=== PATIENT | male | born 1940 | race African-American/Black ===

== ENCOUNTER 2024-06-05 13:56 | Emergency (ER) | payer MEDICARE, OTHER ==
[~2024-06-05] VITALS: Ht 177.8 cm; Wt 66.0 kg
[2024-06-05 14:07] VITALS: O2SAT 97
[2024-06-05] MEDS: SODIUM CHLORIDE 0.9% 1,000 ML IV ONE (15:04)
[2024-06-05 15:23] LABS: BASOPHILS % 0.5 % (0.0-2.0); EOSINOPHILS % 2.3 % (0.0-5.0); HEMATOCRIT. 36.9 % (42.0-52.0); HEMOGLOBIN. 11.9 g/dL (14.0-18.0); LYMPHOCYTES % 25.2 % (20.0-50.0); MEAN CORPUSCULAR HEMOGLOBIN 29.3 pg (28.0-32.0); MEAN CORPUSCULAR HGB CONC 32.3 g/dL (31.0-37.0); MEAN CORPUSCULAR VOLUME 90.8 fL (80.0-94.0); MEAN PLATELET VOLUME 7.4 fl (7.4-10.4); MONOCYTES % 5.7 % (2.0-8.0); NEUTROPHILS % 66.3 % (40.0-76.0); PLATELET 260 x1000/uL (130-400); RED BLOOD CELL COUNT 4.07 mill/uL (4.7-6.1); RED CELL DISTRIBUTION WIDTH 15.7 % (11.6-14.6); WHITE BLOOD COUNT 6.4 x1000/uL (4.5-11.0)
[2024-06-05 15:34] LABS: CHLORIDE 112 mEq/L (98-107); POTASSIUM 4.1 mEq/L (3.5-5.1); SODIUM 142 mEq/L (136-145)
[2024-06-05 15:35] LABS: CALCIUM 9.3 mg/dL (8.7-10.4); CARBON DIOXIDE 25 mEq/L (21-32)
[2024-06-05 15:40] LABS: CREATININE 1.1 mg/dL (0.6-1.3); GLUCOSE 108 mg/dL (70-105); PROTHROMBIN TIME 10.8 sec (9.6-11.0); UREA NITROGEN BLOOD 16 mg/dL (9-23)
[2024-06-05 15:42] LABS: ALANINE AMINOTRANSFERASE < 7 IU/L (10-49); ALBUMIN 3.6 g/dL (3.2-4.8); ASPARTATE AMINOTRANSFERASE 14 IU/L (<34); BILIRUBIN DIRECT 0.1 mg/dL (<=3.0); BILIRUBIN TOTAL 0.4 mg/dL (0.1-1.0); PROTEIN TOTAL 7.1 g/dL (6.0-8.3)
[2024-06-05 15:44] LABS: ETHANOL BLOOD < 10 mg/dL (<10); TROPONIN I HIGH SENSITIVITY 69 ng/L (3.0-53)
[2024-06-05] MEDS ORDERED: CEFTRIAXONE 1GM/50ML 50 ML IV ONE (16:15)
[2024-06-05] MEDS ORDERED: AZITHROMYCIN 500MG/250ML 250 ML IV SCH (16:15)
[2024-06-05 18:40] VITALS: BP 154/76; PULSE 71; RESP 12; TEMP 36.94740; O2SAT 100
[2024-06-05] MEDS ORDERED: IPRATROPIUM/ALBUTEROL 0.5-3(2.5)MG/3ML NEB NEB PRN (18:45)
[2024-06-05] MEDS ORDERED: ONDANSETRON HCL 4MG/2ML INJ IV PRN (18:45)
[2024-06-05] MEDS ORDERED: CLONIDINE 0.1MG TABLET PO PRN (18:45)
[2024-06-05] MEDS ORDERED: ACETAMINOPHEN 325MG TABLET PO PRN ×2 (18:45)
[2024-06-05] MEDS ORDERED: NITROGLYCERIN 0.4MG TABLET SL SL PRN (18:45)
[2024-06-05] MEDS ORDERED: MAGNESIUM/ALUMINUM HYDROXIDE/SIMETHICONE 30ML UDC PO PRN (18:45)
[2024-06-05] MEDS ORDERED: DOCUSATE SODIUM 100MG CAPSULE PO PRN (18:45)
[2024-06-05] MEDS ORDERED: GUAIFENESIN 200MG/10ML SUGAR FREE UDC PO PRN (18:45)
[2024-06-05] MEDS ORDERED: KETOROLAC 15MG/ML VIAL IV PRN (19:00)
[2024-06-05 20:00] LABS: IRON 47 ug/dL (65-175)
[2024-06-05] MEDS ORDERED: ZOLPIDEM TARTRATE 5MG TABLET PO PRN (20:00)
[2024-06-05 20:01] LABS: LDL CHOLESTEROL 107 mg/dL (5-100); TRIGLYCERIDE 96 mg/dL (0-150)
[2024-06-05 20:03] LABS: CHOLESTEROL 177 mg/dL (<200); HDL CHOLESTEROL 57 mg/dL (>55); TOTAL IRON BINDING CAPACITY 252 ug/dl (250-425)
[2024-06-05 20:06] LABS: FOLIC ACID (FOLATE) SERUM 19.01 ng/mL (>5.38); VITAMIN B12 SERUM 640 pg/mL (211-911)
[2024-06-05 20:07] LABS: T4 FREE 1.05 ng/dL (0.89-1.76); THYROID STIMULATING HORMONE 0.87 uIU/mL (0.55-4.78)
[2024-06-05] MEDS ORDERED: ASCORBIC ACID 500 MG TABLET PO SCH (21:00)
[2024-06-05] MEDS ORDERED: METOPROLOL TARTRATE 25MG TABLET PO SCH (21:00)
[2024-06-06] MEDS ORDERED: ZINC SULFATE 220 MG ( 50 ) CAPSULE PO SCH (09:00)
[2024-06-06] MEDS ORDERED: ASPIRIN 81MG EC TABLET PO SCH (09:00)
[2024-06-06] MEDS ORDERED: ENOXAPARIN 40MG/0.4ML SYR SUBCUT SCH (09:00)
== END 2024-06-05 19:31 | disposition short-term general hospital (02) ==
LOC: ER 13:56 → CANBEDREQ 17:32 → ER 19:31
DX: R62.7 Adult failure to thrive (principal); J18.9 Pneumonia, unspecified organism; I21.4 Non-ST elevation (NSTEMI) myocardial infarction; I10 Essential (primary) hypertension; Z86.73 Personal history of transient ischemic attack (TIA), and cerebral infarction without residual deficits
CPT/HCPCS: 80061; 80076; 80048; 80320; 82607; 82746; 83036; 83880; 84439; 83540; 83550; 83605; 83690; 84443; 85025; 85610; 87040; 84484; 36415; 71045; 74176; 93005; 96360; 99291; J7030; G0480